=== PATIENT | male | born 1980 | race Two or more races ===

== ENCOUNTER 2021-04-01 18:22 | Emergency (ER) | payer SELFPAY ==
[~2021-04-01] VITALS: Ht 172.7 cm; Wt 81.6 kg
[2021-04-01] MEDS ORDERED: methylPREDNISolone SOD SUCC 125 MG/2 ML VL IM ONE (19:15)
[2021-04-01] MEDS ORDERED: KETOROLAC TROMETH 30 MG/ML 1ML VIAL IM ONE (19:15)
[2021-04-01 19:36] VITALS: BP 154/121
[2021-04-01] MEDS ORDERED: IBUP800T27 PO (19:37)
[2021-04-01] MEDS ORDERED: METH500T22 PO (19:37)
[2021-04-02] MEDS ORDERED: NAP500T PO (01:30)
== END 2021-04-01 20:14 | disposition home or self-care (01) ==
LOC: ER 18:22
DX: M54.31 Sciatica, right side (principal); F17.210 Nicotine dependence, cigarettes, uncomplicated
CPT/HCPCS: 96372; 99284; J1885; J2930

== ENCOUNTER → 2021-04-02 00:43 | Emergency (ER) | payer SELFPAY ==
[~2021-04-02] VITALS: Ht 172.7 cm; Wt 81.6 kg
[~2021-04-02 00:43] MED LIST: IBUP800T27 PO; METH500T22 PO; NAP500T PO
[2021-04-02 03:25] VITALS: BP 156/82
== END | disposition home or self-care (01) ==
LOC: ER 00:43
DX: M54.32 Sciatica, left side (principal); F17.210 Nicotine dependence, cigarettes, uncomplicated; I48.91 Unspecified atrial fibrillation

== ENCOUNTER 2021-04-02 06:41 | Emergency (ER) | payer SELFPAY ==
[~2021-04-02] VITALS: Ht 172.7 cm; Wt 81.6 kg
[2021-04-02 06:49] VITALS: BP 158/110
== END 2021-04-02 07:17 | disposition left against medical advice (07) ==
LOC: ER 06:41
DX: M79.605 Pain in left leg (principal); Z53.21 Procedure and treatment not carried out due to patient leaving prior to being seen by health care provider